=== PATIENT | female | born 1930 | race Hispanic/Latino ===

== ENCOUNTER 2018-01-14 19:29 | Emergency (ER) | payer OTHER, MEDICARE ==
[2018-01-14] MEDS ORDERED: SODIUM CHLORIDE 0.9% 1000ML 2,000 ML IV ONE (19:53)
[2018-01-14 19:55] LABS: BASOPHILS % (AUTO) 0.5 % (0.0-5.0); HEMATOCRIT 28.8 % (36-48); MEAN CORPUSCULAR HEMOGLOBIN 35.5 pg (27.0-33.0); MONOCYTES % (AUTO) 4.6 % (3.0-13.0); NEUTROPHILS % (AUTO) 80.9 % (40.0-77.0); PLATELET COUNT (AUTO) 88 K/uL (130-400); RED CELL DISTRIBUTION WIDTH 16.1 % (11.0-15.5); WHITE BLOOD COUNT (AUTO) 5.2 K/uL (4.8-10.8)
[2018-01-14] MEDS ORDERED: ACETAMINOPHEN 325 MG TAB ONE (20:01)
[2018-01-14 20:04] LABS: CARBON DIOXIDE 32 mmol/L (21-32); CHLORIDE 101 mmol/L (101-111); CREATININE 0.9 mg/dL (0.5-1.5); GLOMERULAR FILTR. RATE CALC 63 mL/min (>60); GLUCOSE,RANDOM 128 mg/dL (70-105); POTASSIUM 3.4 mmol/L (3.5-5.1); SODIUM SERUM 140 mmol/L (136-145); UREA NITROGEN, BLOOD 20 mg/dL (7-18)
[2018-01-14 20:06] LABS: INR 0.96 (0.85-1.15); PARTIAL THROMBOPLASTIN TIME 25.3 SEC (26.3-35.5); PROTHROMBIN TIME 10.1 SEC (9.6-11.6)
[2018-01-14 20:11] LABS: APPEARANCE,URINE Clear (CLEAR); BILIRUBIN,URINE Negative (NEGATIVE); COLOR,URINE Yellow (YELLOW); GLUCOSE, URINE (UA) Negative (NEGATIVE); KETONES,URINE Negative (NEGATIVE); LEUKOCYTE ESTERASE ,URINE Moderate (NEGATIVE); NITRATE,URINE Positive (NEGATIVE); OCCULT BLOOD,URINE Negative (NEGATIVE); PROTEIN,URINE Negative (NEGATIVE); UROBILINOGEN,URINE 0.2 mg/dL (0.2-1.0)
[2018-01-14 20:20] LABS: ALANINE AMINOTRANSFERASE 16 U/L (12-78); ALBUMIN 3.3 g/dL (3.5-5.0); ASPARTATE AMINOTRANSFERASE 27 U/L (10-37); BILIRUBIN,TOTAL 0.6 mg/dL (0.2-1.0); CREATINE KINASE MB < 0.5 ng/mL (0.5-3.6); CREATINE KINASE, TOTAL 38 U/L (21-232); MYOGLOBIN 53 ng/mL (10-92); TROPONIN I < 0.04 ng/mL (0.00-0.06)
[2018-01-14 20:23] LABS: BACTERIA,URINE Moderate /HPF (None Seen); RBC,URINE None Seen /HPF (0-1); SQUAMOUS EPITHELIAL CELL,UR 0-2 /HPF (0-2)
[2018-01-14] MEDS ORDERED: CEFTRIAXONE SODIUM 1 GM ONE (20:43)
== END 2018-01-14 22:56 | disposition home or self-care (01) ==
LOC: EDH 19:29
DX: N39.0 Urinary tract infection, site not specified (principal); R51 Headache; R11.2 Nausea with vomiting, unspecified; M19.90 Unspecified osteoarthritis, unspecified site; I10 Essential (primary) hypertension; E78.5 Hyperlipidemia, unspecified; R79.1 Abnormal coagulation profile; Z85.3 Personal history of malignant neoplasm of breast
CPT/HCPCS: 36415; 70450; 71045; 80053; 81001; 82550; 82553; 83605; 83874; 84484; 85025; 85610; 85730; 87040; 87088; 87186; 93005; 96361; 96374; 99285; J0696; J7030

== ENCOUNTER 2018-01-18 09:40 | Observation (INO) | payer OTHER, MEDICARE ==
[~2018-01-18] VITALS: Ht 152.4 cm; Wt 56.2 kg
[2018-01-18 10:18] LABS: BASOPHILS % (AUTO) 0.4 % (0.0-5.0); EOSINOPHILS % (AUTO) 0.2 % (0.0-8.0); HEMATOCRIT 27.9 % (36-48); LYMPHOCYTES % (AUTO) 12.9 % (21.0-51.0); MEAN CORPUSCULAR HGB CONC 36.8 g/dL (32.0-36.0); MEAN CORPUSCULAR VOLUME 95.1 fL (79-99); MONOCYTES % (AUTO) 11.7 % (3.0-13.0); NEUTROPHILS % (AUTO) 74.8 % (40.0-77.0); PLATELET COUNT (AUTO) 82 K/uL (130-400); RED BLOOD CELL COUNT(AUTO) 2.94 MIL/uL (4.00-5.50); RED CELL DISTRIBUTION WIDTH 15.6 % (11.0-15.5); WHITE BLOOD COUNT (AUTO) 4.7 K/uL (4.8-10.8)
[2018-01-18] MEDS ORDERED: ACETAMINOPHEN ELIXIR 650 MG/20.3 ML UDCUP ONE (10:20)
[2018-01-18] MEDS ORDERED: ACETAMINOPHEN ELIXIR 325 MG/10.15ML UDCUP ONE (10:21)
[2018-01-18 10:24] LABS: BILIRUBIN,URINE Negative (NEGATIVE); COLOR,URINE Yellow (YELLOW); GLUCOSE, URINE (UA) Negative (NEGATIVE); KETONES,URINE Negative (NEGATIVE); LEUKOCYTE ESTERASE ,URINE Large (NEGATIVE); NITRATE,URINE Positive (NEGATIVE); OCCULT BLOOD,URINE Moderate (NEGATIVE); PROTEIN,URINE Trace (NEGATIVE); UROBILINOGEN,URINE 0.2 mg/dL (0.2-1.0)
[2018-01-18 10:28] LABS: APPEARANCE,URINE CLOUDY (CLEAR)
[2018-01-18] MEDS ORDERED: CEFTRIAXONE SODIUM 2 GM VIAL ONE (10:28)
[2018-01-18 10:30] LABS: INR 1.04 (0.85-1.15); PARTIAL THROMBOPLASTIN TIME 27.5 SEC (26.3-35.5); PROTHROMBIN TIME 10.9 SEC (9.6-11.6)
[2018-01-18 10:36] LABS: BACTERIA,URINE Many /HPF (None Seen); RBC,URINE 26-50 /HPF (0-1); SQUAMOUS EPITHELIAL CELL,UR 0-2 /HPF (0-2); WBC,URINE TNTC /HPF (0-1)
[2018-01-18 10:52] LABS: ALANINE AMINOTRANSFERASE 35 U/L (12-78); ALBUMIN 2.4 g/dL (3.5-5.0); ASPARTATE AMINOTRANSFERASE 72 U/L (10-37); BILIRUBIN,TOTAL 0.6 mg/dL (0.2-1.0); CARBON DIOXIDE 30 mmol/L (21-32); CHLORIDE 99 mmol/L (101-111); CREATINE KINASE MB 0.7 ng/mL (0.5-3.6); CREATINE KINASE, TOTAL 946 U/L (21-232); CREATININE 0.8 mg/dL (0.5-1.5); GLOMERULAR FILTR. RATE CALC 72 mL/min (>60); GLUCOSE,RANDOM 98 mg/dL (70-105); MYOGLOBIN 465 ng/mL (10-92); SODIUM SERUM 140 mmol/L (136-145); TOTAL PROTEIN, SERUM 5.1 g/dL (6.0-8.3); TROPONIN I < 0.04 ng/mL (0.00-0.06); UREA NITROGEN, BLOOD 20 mg/dL (7-18)
[2018-01-18 10:54] LABS: POTASSIUM 2.3 mmol/L (3.5-5.1)
[2018-01-18] MEDS ORDERED: MAGNESIUM 2GM PREMIX 50ML 50 ML IV ONE (11:32)
[2018-01-18] MEDS ORDERED: NS-20 MEQ KCL 1000ML 1,000 ML IV ONE (11:32)
[2018-01-18] MEDS ORDERED: POTASSIUM CHLORIDE 20MEQ/100ML 100 ML IV ONE (11:32)
[2018-01-18] MEDS ORDERED: METO2.5T2 PO (15:47)
[2018-01-18] MEDS ORDERED: SIMV40TA59 PO (15:47)
[2018-01-18] MEDS ORDERED: CIPR-245 PO (15:47)
[2018-01-18] MEDS ORDERED: TAMO20TA4 PO (15:47)
[2018-01-18] MEDS ORDERED: PANT40TA25 PO (15:47)
[2018-01-18] MEDS ORDERED: ENAL2.5T PO (15:47)
[2018-01-18 16:00] VITALS: BP 126/43
[2018-01-18] MEDS ORDERED: POTASSIUM CHLORIDE 10% ELIXIR 20 MEQ/15 ML UDCUP PO PRN (16:15)
[2018-01-18] MEDS ORDERED: ACETAMINOPHEN 325 MG TAB PO PRN (16:15)
[2018-01-18] MEDS ORDERED: ONDANSETRON HCL MDV 20ML 2 MG/ML VIAL IVP PRN (16:30)
[2018-01-18] MEDS: SODIUM CHLORIDE 0.9% 1000ML 1,000 ML IV SCH (16:45)
[2018-01-18 19:00] VITALS: BP 127/42
[2018-01-18] MEDS: POTASSIUM CHLORIDE 20 MEQ ERTAB PO PRN (20:14)
[2018-01-18 23:00] VITALS: BP 120/41
[2018-01-19] MEDS: ACETAMINOPHEN 325 MG TAB PO PRN ×2 (00:40→09:32)
[2018-01-19 03:00] VITALS: BP 116/39
[2018-01-19 04:29] LABS: MEAN CORPUSCULAR HEMOGLOBIN 33.4 pg (27.0-33.0); MEAN CORPUSCULAR HGB CONC 35.3 g/dL (32.0-36.0); MEAN CORPUSCULAR VOLUME 94.7 fL (79-99); PLATELET COUNT (AUTO) 80 K/uL (130-400); RED BLOOD CELL COUNT(AUTO) 2.85 MIL/uL (4.00-5.50); RED CELL DISTRIBUTION WIDTH 15.4 % (11.0-15.5); WHITE BLOOD COUNT (AUTO) 4.8 K/uL (4.8-10.8)
[2018-01-19 05:13] LABS: CREATININE 0.7 mg/dL (0.5-1.5); POTASSIUM 2.8 mmol/L (3.5-5.1)
[2018-01-19] MEDS: POTASSIUM CHLORIDE 20 MEQ ERTAB PO PRN (05:20)
[2018-01-19] MEDS: LIDOCAINE HCL-MPF 1% 2ML VIAL IJ PRN ×2 (05:20→09:32)
[2018-01-19] MEDS: POTASSIUM CHLORIDE 20MEQ/100ML 100 ML IV PRN ×2 (05:20→09:32)
[2018-01-19] MEDS: SODIUM CHLORIDE 0.9% 1000ML 1,000 ML IV SCH (05:32)
[2018-01-19 08:00] VITALS: BP 155/82
[2018-01-19 11:00] VITALS: BP 114/46
[2018-01-19] MEDS: TAMOXIFEN CITRATE 10 MG TABLET PO SCH (11:28)
[2018-01-19] MEDS: ENALAPRIL MALEATE 5 MG TAB PO SCH (11:28)
[2018-01-19] MEDS: CEFTRIAXONE SODIUM 1 GM IVP SCH (11:28)
[2018-01-19 16:00] VITALS: BP 136/62
[2018-01-19] MEDS ORDERED: NYST5ORA7 PO (17:57)
[2018-01-19] MEDS: NYSTATIN 100000 UNIT/ML 5ML UDCUP PO SCH (18:35)
[2018-01-19 19:20] VITALS: BP 127/49
[2018-01-19] MEDS ORDERED: ATORVASTATIN CALCIUM 20 MG TABLET PO SCH (21:00)
[2018-01-20 00:19] VITALS: BP 117/48
[2018-01-20] MEDS: NYSTATIN 100000 UNIT/ML 5ML UDCUP PO SCH ×4 (01:02→17:53)
[2018-01-20 03:56] LABS: CREATININE 0.6 mg/dL (0.5-1.5); POTASSIUM 3.3 mmol/L (3.5-5.1)
[2018-01-20 04:40] VITALS: BP 129/55
[2018-01-20 08:00] VITALS: BP 129/55
[2018-01-20] MEDS: ENALAPRIL MALEATE 5 MG TAB PO SCH (10:39)
[2018-01-20] MEDS: TAMOXIFEN CITRATE 10 MG TABLET PO SCH (10:40)
[2018-01-20] MEDS: CEFTRIAXONE SODIUM 1 GM IVP SCH (10:41)
[2018-01-20 11:00] VITALS: BP 143/64
[2018-01-21] MEDS ORDERED: METOLAZONE 2.5 MG TABLET PO SCH (09:00)
== END 2018-01-20 19:25 ==
LOC: EDH 09:40 → EDHIP 14:10 → 3AH 15:06
PROVIDERS: ADMIT Internal Medicine; ATTEND Internal Medicine
DX: N39.0 Urinary tract infection, site not specified (principal); D61.818 Other pancytopenia; C85.90 Non-Hodgkin lymphoma, unspecified, unspecified site; I10 Essential (primary) hypertension; E87.6 Hypokalemia; E78.5 Hyperlipidemia, unspecified; M62.82 Rhabdomyolysis; Z85.3 Personal history of malignant neoplasm of breast; Z86.73 Personal history of transient ischemic attack (TIA), and cerebral infarction without residual deficits
CPT/HCPCS: 36415 ×3; 71045; 80048 ×2; 80053; 81001; 82550 ×2; 82553; 83605; 83735; 83874; 84132 ×2; 84484; 85025; 85027; 85610; 85730; 87040; 87088; 87186; 93005; 96365; 96366; 96375; 96376; 97039 ×2; 97161; 99291; A4218; G0378 ×53; G8978; G8979; G8981; G8982; G8983; J0696 ×3; J3475; J3480 ×4; J3490 ×2; J7030 ×2

== ENCOUNTER 2018-02-27 14:43 | Inpatient (IN) | payer OTHER, MEDICARE ==
[~2018-02-27] VITALS: Ht 149.9 cm; Wt 52.7 kg
[~2018-02-27 14:43] MED LIST: CIPR-245 PO; ENAL2.5T PO; METO2.5T2 PO; NYST5ORA7 PO; PANT40TA25 PO; SIMV40TA59 PO; TAMO20TA4 PO
[2018-02-27 16:52] LABS: MEAN CORPUSCULAR HEMOGLOBIN 33.4 pg (27.0-33.0); MEAN CORPUSCULAR HGB CONC 35.1 g/dL (32.0-36.0); MEAN CORPUSCULAR VOLUME 95.2 fL (79-99); NUCLEATED RED BLOOD CELLS 0.3 % (0.0-0.19); PLATELET COUNT (AUTO) 83 K/uL (130-400); RED BLOOD CELL COUNT(AUTO) 2.73 MIL/uL (4.00-5.50); RED CELL DISTRIBUTION WIDTH 16.5 % (11.0-15.5)
[2018-02-27 16:54] LABS: INR 0.94 (0.85-1.15); PARTIAL THROMBOPLASTIN TIME 33.1 SEC (26.3-35.5); PROTHROMBIN TIME 9.9 SEC (9.6-11.6)
[2018-02-27 16:54] LABS: APPEARANCE,URINE CLEAR (CLEAR); BILIRUBIN,URINE NEGATIVE (NEGATIVE); COLOR,URINE YELLOW (YELLOW); GLUCOSE, URINE (UA) NEGATIVE (NEGATIVE); KETONES,URINE NEGATIVE (NEGATIVE); LEUKOCYTE ESTERASE ,URINE NEGATIVE (NEGATIVE); NITRATE,URINE POSITIVE (NEGATIVE); OCCULT BLOOD,URINE NEGATIVE (NEGATIVE); PH,URINE 7.5 (5.0-8.0); PROTEIN,URINE NEGATIVE (NEGATIVE)
[2018-02-27 16:55] LABS: CREATININE 0.7 mg/dL (0.5-1.5); POTASSIUM 3.9 mmol/L (3.5-5.1)
[2018-02-27 17:00] LABS: ALBUMIN 2.3 g/dL (3.5-5.0); BILIRUBIN,DIRECT 0.1 mg/dL (0.0-0.3); BILIRUBIN,TOTAL 0.5 mg/dL (0.2-1.0); TOTAL PROTEIN, SERUM 5.2 g/dL (6.0-8.3)
[2018-02-27 17:10] LABS: WHITE BLOOD COUNT (AUTO) 1.1 K/uL (4.8-10.8)
[2018-02-27 18:14] LABS: BACTERIA,URINE Few /HPF (None Seen); RBC,URINE 0-1 /HPF (0-1); SQUAMOUS EPITHELIAL CELL,UR Few /HPF (0-2); WBC,URINE 0-1 /HPF (0-1)
[2018-02-27] MEDS ORDERED: CEFTRIAXONE SODIUM 1 GM ONE (18:48)
[2018-02-27] MEDS: CEFTRIAXONE SODIUM 1 GM IVP SCH (19:30)
[2018-02-27 19:38] VITALS: BP 112/48
[2018-02-27 19:59] LABS: BAND NEUTROPHILS % (MANUAL) 18 % (0-2); LYMPHOCYTES % (MANUAL) 35 % (22-44); MAN.DIFF COMMENT-IMPRESSION MANUAL DIFFERENTIAL; MONOCYTES % (MANUAL) 25 % (2-9); REACTIVE LYMPHOCYTES 1 % (0-0); SEGMENTED NEUTROPHILS % 21 % (40-70)
[2018-02-27] MEDS: TBO-FILGRASTIM 480 MCG/0.8 ML ML SQ SCH (20:05)
[2018-02-27] MEDS: SODIUM CHLORIDE 0.9% 1000ML 1,000 ML IV SCH (20:06)
[2018-02-27 21:00] VITALS: BP 98/40
[2018-02-27] MEDS ORDERED: GLUCAGON 1MG KIT 1 MG ML IM PRN (21:00)
[2018-02-27] MEDS ORDERED: DEXTROSE 50%-WATER 50 ML DISP.SYRIN IV PRN (21:00)
[2018-02-27] MEDS ORDERED: LIDOCAINE HCL-MPF 1% 2ML VIAL IVP PRN (21:00)
[2018-02-27] MEDS ORDERED: HYDRALAZINE HCL 20 MG/ML VIAL IM PRN (21:00)
[2018-02-27] MEDS ORDERED: IPRATROPIUM/ALBUTEROL SULFATE 3 ML SOLUTION IH PRN (21:00)
[2018-02-27] MEDS ORDERED: POTASSIUM CHLORIDE 10% ELIXIR 20 MEQ/15 ML UDCUP PO PRN (21:00)
[2018-02-27] MEDS ORDERED: GUAIFENESIN-DM 200/20 MG 10 ML PO PRN (21:00)
[2018-02-27] MEDS ORDERED: POTASSIUM CHLORIDE 20MEQ/100ML 100 ML IV PRN (21:00)
[2018-02-27] MEDS ORDERED: INSULIN HUMULIN R 100 UNIT/ML 3ML SQ SCH (21:00)
[2018-02-27] MEDS ORDERED: ACETAMINOPHEN 325 MG TAB PO PRN (21:00)
[2018-02-27] MEDS ORDERED: DOCU100T PO (21:52)
[2018-02-27] MEDS ORDERED: FERR325T22 PO (21:52)
[2018-02-27] MEDS ORDERED: CYAN10007 IJ (21:52)
[2018-02-27] MEDS ORDERED: ATOR10 PO (21:52)
[2018-02-27] MEDS ORDERED: MELA3TAB PO (21:52)
[2018-02-28] VITALS (7 sets, daily range): BP systolic 100–124; BP diastolic 40–50
[2018-02-28 05:46] LABS: MEAN CORPUSCULAR HEMOGLOBIN 33.3 pg (27.0-33.0); MEAN CORPUSCULAR HGB CONC 35.5 g/dL (32.0-36.0); MEAN CORPUSCULAR VOLUME 93.9 fL (79-99); NUCLEATED RED BLOOD CELLS 0.1 % (0.0-0.19); PLATELET COUNT (AUTO) 80 K/uL (130-400); RED BLOOD CELL COUNT(AUTO) 2.66 MIL/uL (4.00-5.50); RED CELL DISTRIBUTION WIDTH 16.5 % (11.0-15.5); WHITE BLOOD COUNT (AUTO) 1.6 K/uL (4.8-10.8)
[2018-02-28] MEDS: SODIUM CHLORIDE 0.9% 1000ML 1,000 ML IV SCH (05:46)
[2018-02-28 06:01] LABS: CREATININE 0.6 mg/dL (0.5-1.5); POTASSIUM 3.4 mmol/L (3.5-5.1)
[2018-02-28 07:46] LABS: BASOPHILS % (MANUAL) 1 % (0-2); LYMPHOCYTES % (MANUAL) 13 % (22-44); MAN.DIFF COMMENT-IMPRESSION MANUAL DIFFERENTIAL; MONOCYTES % (MANUAL) 48 % (2-9); PLATELET MORPHOLOGY COMMENT DECREASED; REACTIVE LYMPHOCYTES 7 % (0-0); SEGMENTED NEUTROPHILS % 31 % (40-70)
[2018-02-28] MEDS: CEFTRIAXONE SODIUM 1 GM IVP SCH (08:52)
[2018-02-28] MEDS ORDERED: ACETAMINOPHEN-CODEINE 300/30MG TAB PO PRN (11:45)
[2018-02-28] MEDS ORDERED: LACTULOSE 20 GM/30 ML UDCUP PO PRN (11:45)
[2018-02-28] MEDS ORDERED: GUAIFENESIN-DM 200/20 MG 10 ML PO PRN (11:45)
[2018-02-28] MEDS ORDERED: ACETAMINOPHEN 325 MG TAB PO PRN ×2 (11:45)
[2018-02-28] MEDS ORDERED: MAG HYDROX/AL HYDROX/SIMETH ES 30 ML SUSP UDCUP PO PRN (11:45)
[2018-02-28] MEDS ORDERED: NITROGLYCERIN 0.4 MG SL TAB SL PRN (11:45)
[2018-02-28] MEDS ORDERED: MORPHINE SULFATE 2 MG/ML 1ML SYG IV PRN (11:45)
[2018-02-28] MEDS ORDERED: HYDRALAZINE HCL 20 MG/ML VIAL IV PRN (11:45)
[2018-02-28] MEDS ORDERED: ONDANSETRON HCL MDV 20ML 2 MG/ML VIAL IVP PRN (12:00)
[2018-02-28] MEDS ORDERED: VANCOMYCIN PROTOCOL PER PHARMACY IV SCH (14:30)
[2018-02-28] MEDS ORDERED: VANCOMYCIN 1GM+NS 250ML 250 ML IV ONE (16:00)
[2018-02-28] MEDS: TBO-FILGRASTIM 480 MCG/0.8 ML ML SQ SCH (18:04)
[2018-02-28] MEDS: DOCUSATE SODIUM 100 MG CAP PO SCH (20:19)
[2018-02-28] MEDS: FAMOTIDINE 20MG TAB 20 MG TAB PO SCH (20:19)
[2018-02-28] MEDS: ATORVASTATIN CALCIUM 20 MG TABLET PO SCH (20:19)
[2018-03-01 03:43] VITALS: BP 118/47
[2018-03-01 05:31] LABS: HEMATOCRIT 26.2 % (36-48); MEAN CORPUSCULAR HEMOGLOBIN 34.6 pg (27.0-33.0); MEAN CORPUSCULAR HGB CONC 36.7 g/dL (32.0-36.0); MEAN CORPUSCULAR VOLUME 94.3 fL (79-99); PLATELET COUNT (AUTO) 78 K/uL (130-400); RED BLOOD CELL COUNT(AUTO) 2.78 MIL/uL (4.00-5.50); RED CELL DISTRIBUTION WIDTH 16.2 % (11.0-15.5); WHITE BLOOD COUNT (AUTO) 3.9 K/uL (4.8-10.8)
[2018-03-01 05:48] LABS: CREATININE 0.6 mg/dL (0.5-1.5); POTASSIUM 3.3 mmol/L (3.5-5.1)
[2018-03-01] MEDS: VANCOMYCIN 500MG+NS 100ML 100 ML IV SCH ×2 (06:24→16:49)
[2018-03-01] MEDS: PANTOPRAZOLE SODIUM 40 MG TABLET.DR PO SCH (07:30)
[2018-03-01 07:53] VITALS: BP 119/46
[2018-03-01] MEDS ORDERED: **HM** MELATONIN 3MG PO PRN (09:00)
[2018-03-01] MEDS: FERROUS SULFATE 325 MG TABLET.DR PO SCH (09:18)
[2018-03-01] MEDS: FAMOTIDINE 20MG TAB 20 MG TAB PO SCH ×2 (09:19→20:23)
[2018-03-01] MEDS: DOCUSATE SODIUM 100 MG CAP PO SCH ×2 (09:19→20:23)
[2018-03-01] MEDS: CEFTRIAXONE SODIUM 1 GM IVP SCH (09:19)
[2018-03-01] MEDS: POTASSIUM CHLORIDE 20 MEQ ERTAB PO PRN ×2 (09:27→16:50)
[2018-03-01 11:54] VITALS: BP 104/47
[2018-03-01] MEDS: IPRATROPIUM/ALBUTEROL SULFATE 3 ML SOLUTION IH SCH ×2 (14:11→21:18)
[2018-03-01] MEDS: ACETYLCYSTEINE 20% 200MG/ML 4ML VIAL IH SCH ×2 (14:11→21:18)
[2018-03-01 16:31] VITALS: BP 121/41
[2018-03-01] MEDS: TBO-FILGRASTIM 480 MCG/0.8 ML ML SQ SCH (16:49)
[2018-03-01 20:01] VITALS: BP 111/47
[2018-03-01] MEDS: ATORVASTATIN CALCIUM 20 MG TABLET PO SCH (20:23)
[2018-03-02 00:02] VITALS: BP 112/50
[2018-03-02 04:00] VITALS: BP 111/66
[2018-03-02 05:21] LABS: HEMATOCRIT 25.2 % (36-48); MEAN CORPUSCULAR HEMOGLOBIN 33.6 pg (27.0-33.0); MEAN CORPUSCULAR HGB CONC 35.6 g/dL (32.0-36.0); MEAN CORPUSCULAR VOLUME 94.4 fL (79-99); PLATELET COUNT (AUTO) 71 K/uL (130-400); RED BLOOD CELL COUNT(AUTO) 2.67 MIL/uL (4.00-5.50); RED CELL DISTRIBUTION WIDTH 16.2 % (11.0-15.5); WHITE BLOOD COUNT (AUTO) 7.7 K/uL (4.8-10.8)
[2018-03-02 05:35] LABS: CREATININE 0.7 mg/dL (0.5-1.5); POTASSIUM 3.5 mmol/L (3.5-5.1)
[2018-03-02] MEDS: VANCOMYCIN 500MG+NS 100ML 100 ML IV SCH ×2 (06:24→17:29)
[2018-03-02] MEDS: POTASSIUM CHLORIDE 20 MEQ ERTAB PO PRN ×2 (06:24→10:21)
[2018-03-02] MEDS: ACETYLCYSTEINE 20% 200MG/ML 4ML VIAL IH SCH (07:11)
[2018-03-02] MEDS: IPRATROPIUM/ALBUTEROL SULFATE 3 ML SOLUTION IH SCH ×3 (07:11→22:28)
[2018-03-02 07:46] VITALS: BP 99/47
[2018-03-02] MEDS: FAMOTIDINE 20MG TAB 20 MG TAB PO SCH ×2 (07:52→21:15)
[2018-03-02] MEDS: PANTOPRAZOLE SODIUM 40 MG TABLET.DR PO SCH (07:53)
[2018-03-02] MEDS: DOCUSATE SODIUM 100 MG CAP PO SCH ×2 (07:53→21:15)
[2018-03-02] MEDS: FERROUS SULFATE 325 MG TABLET.DR PO SCH (07:53)
[2018-03-02] MEDS: CEFTRIAXONE SODIUM 1 GM IVP SCH (07:53)
[2018-03-02 11:33] VITALS: BP 106/49
[2018-03-02 16:13] VITALS: BP 104/42
[2018-03-02] MEDS: TBO-FILGRASTIM 480 MCG/0.8 ML ML SQ SCH (17:29)
[2018-03-02 20:00] VITALS: BP 114/47
[2018-03-02] MEDS: ATORVASTATIN CALCIUM 20 MG TABLET PO SCH (21:15)
[2018-03-03] VITALS: BP 104/43
[2018-03-03 04:00] VITALS: BP 105/51
[2018-03-03] MEDS: IPRATROPIUM/ALBUTEROL SULFATE 3 ML SOLUTION IH SCH (05:55)
[2018-03-03] MEDS: VANCOMYCIN 500MG+NS 100ML 100 ML IV SCH (06:10)
[2018-03-03] MEDS: PANTOPRAZOLE SODIUM 40 MG TABLET.DR PO SCH (06:10)
[2018-03-03 08:13] VITALS: BP 100/59
[2018-03-03] MEDS: CEFTRIAXONE SODIUM 1 GM IVP SCH (09:19)
[2018-03-03] MEDS: FERROUS SULFATE 325 MG TABLET.DR PO SCH (09:20)
[2018-03-03] MEDS: DOCUSATE SODIUM 100 MG CAP PO SCH (09:20)
[2018-03-03] MEDS: FAMOTIDINE 20MG TAB 20 MG TAB PO SCH (09:20)
[2018-03-03] MEDS ORDERED: NYSTATIN 100000 UNIT/ML 5ML UDCUP PO SCH (09:30)
[2018-03-03 11:20] VITALS: BP 104/55
[2018-03-30] MEDS ORDERED: CYANOCOBALAMIN (VITAMIN B-12) 1000 MCG/ML 1ML VIAL IM SCH (09:00)
== END 2018-03-03 12:21 | DRG 871 ==
LOC: EDH 14:43 → OBSVTOIN 18:20 → 4BH 18:20
PROVIDERS: ADMIT Internal Medicine Hematology & Oncology; ATTEND Internal Medicine Hematology & Oncology
DX: A41.9 Sepsis, unspecified organism (principal); E43 Unspecified severe protein-calorie malnutrition; D61.818 Other pancytopenia; B37.0 Candidal stomatitis; C85.90 Non-Hodgkin lymphoma, unspecified, unspecified site; I69.351 Hemiplegia and hemiparesis following cerebral infarction affecting right dominant side; N39.0 Urinary tract infection, site not specified; E86.0 Dehydration; E78.5 Hyperlipidemia, unspecified; I10 Essential (primary) hypertension; M19.90 Unspecified osteoarthritis, unspecified site; Z85.3 Personal history of malignant neoplasm of breast; Z87.440 Personal history of urinary (tract) infections; Z87.891 Personal history of nicotine dependence; Z92.21 Personal history of antineoplastic chemotherapy; Z92.3 Personal history of irradiation
CPT/HCPCS: 36415; 71045; 71046; 80048; 80076; 80202; 81001; 82948; 84132; 85025; 85027; 85610; 85730; 87040; 87186; 92610; 94640; 94664; 97039; A4218; J0696; J3370; J3480; J7608

== ENCOUNTER → 2018-09-13 | Outpatient (CLI) | payer OTHER, MEDICARE ==
[~2018-09-13] MED LIST changes: +ATOR10 PO; -CIPR-245 PO; +CYAN10007 IJ; +DOCU100T PO; -ENAL2.5T PO; +FERR325T22 PO; +MELA3TAB PO; -NYST5ORA7 PO; -SIMV40TA59 PO
== END | disposition home or self-care (01) ==
LOC: RAH 11:24
PROVIDERS: ATTEND Internal Medicine
DX: S39.92XA Unspecified injury of lower back, initial encounter (principal); S09.90XA Unspecified injury of head, initial encounter; M43.17 Spondylolisthesis, lumbosacral region; M51.37 Other intervertebral disc degeneration, lumbosacral region; M41.86 Other forms of scoliosis, lumbar region; M79.605 Pain in left leg; R29.6 Repeated falls; X58.XXXA Exposure to other specified factors, initial encounter; Y93.89 Activity, other specified; Y92.89 Other specified places as the place of occurrence of the external cause; Y99.8 Other external cause status
CPT/HCPCS: 72100; 72190; 73552

== ENCOUNTER → 2018-09-15 | Outpatient (CLI) | payer OTHER, MEDICARE | END | disposition home or self-care (01) | LOC: RAH 10:19 | PROVIDERS: ATTEND Internal Medicine | DX: S09.90XA Unspecified injury of head, initial encounter (principal); S39.92XA Unspecified injury of lower back, initial encounter; R29.6 Repeated falls; G93.89 Other specified disorders of brain; Z86.73 Personal history of transient ischemic attack (TIA), and cerebral infarction without residual deficits; X58.XXXA Exposure to other specified factors, initial encounter; Y93.89 Activity, other specified; Y92.89 Other specified places as the place of occurrence of the external cause; Y99.8 Other external cause status | CPT/HCPCS: 70450 ==

== ENCOUNTER → 2019-08-03 | Outpatient (CLI) | payer OTHER, MEDICARE ==
[~2019-08-03] MED LIST changes: -MELA3TAB PO; +MELA3TAB66 PO
== END | disposition home or self-care (01) ==
LOC: RAH 10:49
PROVIDERS: ATTEND Internal Medicine
DX: Z01.811 Encounter for preprocedural respiratory examination (principal); Z01.818 Encounter for other preprocedural examination; R05 Cough
CPT/HCPCS: 71046

== ENCOUNTER → 2020-03-04 | Outpatient (CLI) | payer OTHER, MEDICARE ==
[~2020-03-04] MED LIST changes: +MELA3TAB41 PO; -MELA3TAB66 PO
== END | disposition home or self-care (01) ==
LOC: RAH 11:00
PROVIDERS: ATTEND Internal Medicine
DX: Z04.3 Encounter for examination and observation following other accident (principal); M79.89 Other specified soft tissue disorders
CPT/HCPCS: 73502; 73562; 73590